=== PATIENT | female | born 1945 | race Hispanic/Latino ===

== ENCOUNTER 2018-12-26 00:08 | Emergency (ER) | payer MEDICARE ==
[2018-12-26] MEDS ORDERED: XYLOCAINE 1% MPF 5 mL INFILTRATI ONE (01:00)
[2018-12-26] MEDS ORDERED: TYLENOL PO ONE (01:26)
[2018-12-26] MEDS ORDERED: CIPRODEX AU ONE (01:28)
--- NOTE | 2018-12-26 01:34 | Emergency Department Report ---
ED ENT HPI - General Chief complaint: Earache Stated complaint: BUG IN RIGHT EAR Time Seen by Provider: 12/26/18 00:59 Source: patient Mode of arrival: Ambulatory Limitations: No Limitations - History of Present Illness Initial comments: pt is a 73 y/o w/f who presents for bug in right ear, x tonight pt states" I can feel it moving in my ear, I went to sleep and woke up with bowling crawling in my ear." complaint: ear pain Onset/Timin -: days(s) Location: R ear Severity scale (0 -10): 7 Quality: aching Consistency: constant Improves with: none Worsens with: none Context- Ear: other (insect ear) Associated Symptoms: tinnitus. denies: fever, cough, gum swelling, toothache, sore throat, hearing loss, discharge from ear, rhinorrhea - Related Data Previous Rx's Medication Instructions Recorded Last Taken Type Acetaminophen [Tylenol] 650 mg PO QID PRN #30 capsule 12/26/18 Unknown Rx Cipro/Dexameth 0.3/0.1% [Ciprodex 4 drops OT BID 10 Days #10 ml 12/26/18 Unknown Rx OTIC] Allergies Allergy/AdvReac Type Severity Reaction Status Date / Time codeine Allergy Itching Verified 12/26/18 00:10 ED Dental HPI - General Chief complaint: Earache Stated complaint: BUG IN RIGHT EAR Time Seen by Provider: 12/26/18 00:59 Source: patient Mode of arrival: Ambulatory Limitations: No Limitations - Related Data Previous Rx's Medication Instructions Recorded Last Taken Type Acetaminophen [Tylenol] 650 mg PO QID PRN #30 capsule 12/26/18 Unknown Rx Cipro/Dexameth 0.3/0.1% [Ciprodex 4 drops OT BID 10 Days #10 ml 12/26/18 Unknown Rx OTIC] Allergies Allergy/AdvReac Type Severity Reaction Status Date / Time codeine Allergy Itching Verified 12/26/18 00:10 ED Review of Systems ROS: Stated complaint: BUG IN RIGHT EAR Other details as noted in HPI Constitutional: denies: chills, fever Eyes: denies: eye pain, eye discharge, vision change ENT: ear pain Respiratory: denies: cough, shortness of breath, wheezing Cardiovascular: denies: chest pain, palpitations Endocrine: no symptoms reported Gastrointestinal: denies: abdominal pain, nausea, diarrhea Genitourinary: denies: urgency, dysuria, discharge Musculoskeletal: denies: back pain, joint swelling, arthralgia Skin: denies: rash, lesions Neurological: as per HPI Psychiatric: denies: anxiety, depression Hematological/Lymphatic: denies: easy bleeding, easy bruising ED Past Medical Hx - Past Medical History Previous Medical History?: Yes Hx COPD: Yes Additional medical history: high chol - Surgical History Past Surgical History?: Yes Additional Surgical History: rectal surgery - Social History Smoking Status: Current Every Day Smoker Substance Use Type: None - Medications Home Medications: Home Medications Medication Instructions Recorded Confirmed Last Taken Type Acetaminophen [Tylenol] 650 mg PO QID PRN #30 capsule 12/26/18 Unknown Rx Cipro/Dexameth 0.3/0.1% [Ciprodex 4 drops OT BID 10 Days #10 ml 12/26/18 Unknown Rx OTIC] ED Physical Exam - General Limitations: No Limitations General appearance: alert, in no apparent distress - Head Head exam: Present: atraumatic, normocephalic - Eye Eye exam: Present: normal appearance, EOMI - ENT ENT exam: Present: normal orophraynx, mucous membranes moist - Neck Neck exam: Present: normal inspection, full ROM. Absent: tenderness, meningismus, thyromegaly - Respiratory Respiratory exam: Present: normal lung sounds bilaterally. Absent: respiratory distress, wheezes, stridor, chest wall tenderness - Cardiovascular Cardiovascular Exam: Present: regular rate, normal heart sounds - GI/Abdominal GI/Abdominal exam: Present: soft, normal bowel sounds. Absent: distended, tenderness, guarding, rebound, rigid, mass, bruit - Rectal Rectal exam: Present: deferred - Extremities Exam Extremities exam: Present: normal inspection, full ROM, normal capillary refill. Absent: tenderness, pedal edema, joint swelling, calf tenderness - Back Exam Back exam: Present: normal inspection, full ROM. Absent: tenderness, muscle spasm, paraspinal tenderness, vertebral tenderness - Neurological Exam Neurological exam: Present: alert, oriented X3, CN II-XII intact, normal gait, reflexes normal - Psychiatric Psychiatric exam: Present: normal affect, normal mood - Skin Skin exam: Present: warm, dry, intact, normal color. Absent: rash ED Course Vital Signs 12/26/18 00:10 Temperature 97.5 F L Pulse Rate 84 Respiratory 18 Rate Blood Pressure 158/70 O2 Sat by Pulse 93 Oximetry - Foreign Body Removal Ear Location: ear canal (L) Foreign Body Suspected: insect If Insect Suspected: ear canal inspected-intac Foreign Body Removed: partial removal Foreign Body Removal Technique: instrumentation Tympanic Membrane Intact: Yes Patient Tolerated Procedure: no complications Complications: bleeding (scant bleeding,) Additional Comments: Insect arrival is still 1 mL of 1% lidocaine plain . Sterile saline 10 mL partial removal. Curret patient. Procedure halted there is scant bleeding in the ear canal always controlled at this time sterile 2 x 2 dressing patient given wound care instructions included eardrops patient will follow with ENT in 2-3 days patient tolerated procedure with minimal distress ED Medical Decision Making - Medical Decision Making foreign body right ear see procedure noted, plan: ciprodex, x 10 days, pt will follow up with ENT tomorrow Dr. Joya, pt verbalized agreement and understanding of discharge plan. Critical care attestation.: If time is entered above; I have spent that time in minutes in the direct care of this critically ill patient, excluding procedure time. ED Disposition Clinical Impression: Foreign body in ear Qualifiers: Encounter type: initial encounter Laterality: left Qualified Code(s): T16.2XXA - Foreign body in left ear, initial encounter Disposition: - TO HOME OR SELFCARE Is pt being admited?: No Does the pt Need Aspirin: No Condition: Stable Instructions: Ear Foreign Body (ED) Prescriptions: Cipro/Dexameth 0.3/0.1% [Ciprodex OTIC] 4 drops OT BID 10 Days #10 ml Acetaminophen [Tylenol] 650 mg PO QID PRN #30 capsule PRN Reason: pain Forms: Work/School Release Form(ED) Time of Disposition: 01:57
[2018-12-26 02:44] VITALS: BP 149/80
== END 2018-12-26 02:44 | disposition home or self-care (01) ==
LOC: ED 00:08
DX: T16.2XXA Foreign body in left ear, initial encounter (principal); J44.9 Chronic obstructive pulmonary disease, unspecified; E78.00 Pure hypercholesterolemia, unspecified; F17.200 Nicotine dependence, unspecified, uncomplicated; Z88.6 Allergy status to analgesic agent; X58.XXXA Exposure to other specified factors, initial encounter; Y93.89 Activity, other specified; Y92.89 Other specified places as the place of occurrence of the external cause; Y99.8 Other external cause status
CPT/HCPCS: 99282